=== PATIENT | female | born 1980 | race Caucasian/White ===

== ENCOUNTER 2017-03-29 21:05 | Emergency (ER) | END 2017-03-29 21:42 | disposition home or self-care (01) ==

== ENCOUNTER 2018-07-17 10:05 | Emergency (ER) | payer MEDICAID ==
[~2018-07-17] VITALS: Ht 160 cm; Wt 56.5 kg
[~2018-07-17 10:05] MED LIST: ALBU8.5H8 INH; AZIT250T PO; MED4DP PO
[2018-07-17 10:19] VITALS: BP 138/84; PULSE 96; RESP 20; Ht 160 cm; Wt 56.5 kg
[2018-07-17] MEDS ORDERED: PSEU-79 PO (10:48)
[2018-07-17] MEDS ORDERED: MED4DP PO (10:48)
[2018-07-17] MEDS ORDERED: MECL12.574 PO (10:48)
[2018-07-17] MEDS ORDERED: NAPR-985 PO (10:48)
--- NOTE | 2018-07-17 11:06 | ERD ---
ER Documentation Chief Complaint Chief Complaint C/O VERTIGO SINCE YESTERDAY. ON AND OFF PROBLEM FOR 6 MONTHS. HPI 38-year-old female presenting with vertigo that started yesterday. Patient states she has had this on and off for the last 6 months and it was resolved however 2 days ago it is returned. She is been seen by ENT, chiropractic and primary doctor. She states that her only relief was after using Cortisporin otic drops for otitis externa. Patient states that she feels some fullness in her right neck sinus has a 2 days ago. Patient also has some mild neck pain after going to the chiropractor. NKDA. Surgical history is a 10-year-old due to perforated gastric ulcer. Social history denies ROS All systems reviewed and are negative except as per history of present illness. Medications Home Meds Active Scripts Methylprednisolone* (Medrol* DOSE PACK) 4 Mg/Dose-Pack Tab.ds.pk, 4 MG PO . DIRECTED, #1 PACKET Prov:TREMAINE CHRISTIANSON PA-C 07/17/18 Naproxen* (Naprosyn*) 500 Mg Tablet, 500 MG PO BID PRN for PAIN AND/OR INFLAMMATION, #30 TAB Prov:TREMAINE CHRISTIANSON PA-C 07/17/18 Meclizine Hcl* (Antivert*) 12.5 Mg Tab, 12.5 MG PO Q6H PRN for DIZZINESS, #20 TAB Prov:TREMAINE CHRISTIANSON PA-C 07/17/18 Pseudoephedrine Hcl* (Suphedrin*) 30 Mg Tablet, 30 MG PO Q6 PRN for CONGESTION, #30 TAB Prov:TREMAINE CHRISTIANSON PA-C 07/17/18 Methylprednisolone* (Medrol* DOSE PACK) 4 Mg/Dose-Pack Tab.ds.pk, 4 MG PO . DIRECTED for 6 Days, PACKET Prov:JHONNY FELIPE 03/29/17 Albuterol Sulfate* (Proair HFA*) 8.5 Gm Hfa.aer.ad, 2 PUFF INH Q4, #1 INHALER Prov:JHONNY FELIPE 03/29/17 Azithromycin* (Zithromax*) 250 Mg Tablet, 250 MG PO .LowellPACK DIRECTED, #6 TAB TAKE 500 MG (2 TABS) THE FIRST DAY THEN 250 MG (1 TAB) DAYS 2-5 Prov:JHONNY FELIPE 03/29/17 Allergies Allergies: Coded Allergies: No Known Allergy (Unverified , 07/17/18) PMhx/Soc Medical and Surgical Hx: pt denies Medical Hx, pt denies Surgical Hx Hx Alcohol Use: No Hx Substance Use: No Hx Tobacco Use: No Smoking Status: Never smoker FmHx Family History: No diabetes, No coronary disease, No other Physical Exam Vitals Vital Signs Date Temp Pulse Resp B/P (MAP) Pulse Ox O2 O2 Flow FiO2 Time Delivery Rate 07/17/18 98.6 96 20 138/84 99 10:19 (102) Physical Exam GENERAL: The patient is well-appearing, well-nourished, in no acute distress HEENT: Atraumatic. Conjunctivae are pink. Pupils equal, round, and reactive to light. There is no scleral icterus. Tympanic membranes clear bilaterally. Oropharynx clear. CHEST: Clear to auscultation bilaterally. There are no rales, wheezes or rhonchi. HEART: Regular rate and rhythm. No murmurs, clicks, rubs or gallops. NEUROLOGIC: Alert and oriented. Cranial nerves II through XII intact. Motor strength in all 4 extremities with 5 out of 5 strength. Sensation grossly i ntact. Normal speech and gait. Procedures/MDM MDM: 38-year-old female presenting with vertigo. Patient's neuro exam is within normal limits. I have low suspicion for intracranial hemorrhage or neuro deficit. I have low suspicion for infectious process. Patient is complaining of sinus fullness I will treat with supportive medications. Patient is told to follow-up with primary care. All questions answered at discharge Departure Diagnosis: Primary Impression: Vertigo Condition: Stable Patient Instructions: Vertigo, Unspecified Referrals: [facility] YOU HAVE RECEIVED A MEDICAL SCREENING EXAM AND THE RESULTS INDICATE THAT YOU DO NOT HAVE A CONDITION THAT REQUIRES URGENT TREATMENT IN THE EMERGENCY DEPARTMENT. FURTHER EVALUATION AND TREATMENT OF YOUR CONDITION CAN WAIT UNTIL YOU ARE SEEN IN YOUR DOCTORS OFFICE WITHIN THE NEXT 1-2 DAYS. IT IS YOUR RESPONSIBILITY TO MAKE AN APPOINTMENT FOR FOLOW-UP CARE. IF YOU HAVE A PRIMARY DOCTOR --you should call your primary doctor and schedule an appointment IF YOU DO NOT HAVE A PRIMARY DOCTOR YOU CAN CALL OUR PHYSICIAN REFERRAL HOTLINE AT IF YOU CAN NOT AFFORD TO SEE A PHYSICIAN YOU CAN CHOSE FROM THE FOLLOWING THE [facility] [address] [facility] [address] [facility] [facility] [address] [facility] [address] [facility]. [facility] [address] [facility]. [facility]. [address] Additional Instructions: FOLLOW UP WITH YOUR PRIMARY CARE PHYSICIAN TOMORROW.Return to this facility if you are not improving as expected. TREMAINE CHRISTIANSON PA-C July 17, 2018 11:06
== END 2018-07-17 11:11 | disposition home or self-care (01) ==
LOC: FTE 10:05
DX: R42 Dizziness and giddiness (principal)
CPT/HCPCS: 99283